=== PATIENT | male | born 1970 | race Caucasian/White ===

== ENCOUNTER 2020-05-11 16:44 | Outpatient (REF) | payer OTHER, SELFPAY | END 2020-05-11 16:45 | disposition home or self-care (01) | LOC: HO.LAB 16:44 | PROVIDERS: Visit Provider Nurse Practitioner Family | DX: N39.0 Urinary tract infection, site not specified (principal); R31.9 Hematuria, unspecified | CPT/HCPCS: 87086; 87088; 87186 ==

== ENCOUNTER 2020-05-24 10:50 | Day surgery (SDC) | payer OTHER, SELFPAY ==
[2020-05-18 12:22] VITALS: BMI 27.8
--- NOTE | 2020-05-23 09:39 | P.CONAN_ITS ---
Documented by User: Ania Zurita 05/23/20 09:40 HPI - Anesthesia Eval Consult details Narrative: 49yo M for Colonoscopy [facility] Past Medical History Medical History Elevated cholesterol Heartburn symptom Sleep apnea Urinary tract infection Surgical History Surgical History No history of previous surgery Social History Social History Smoking Status: Never smoker Use of substances other than those prescribed or required for medical reasons: No Advance Directives Information Provided: No Recently lost weight without trying: No Meds Allergies Allergy/AdvReac Type Severity Reaction Status Date / Time No Known Allergies Allergy Verified 05/18/20 11:09 [No Known Allergies*] Home Medications Medication Instructions Recorded Confirmed Type cephalexin 1 cap PO BID 05/18/20 05/18/20 History Exam Exam Date and Time: May 23, [id number] Height,Weight and Vital Signs: Height 5 ft 8 in Weight 83.007 kg Assessment and Plan Assessment Anesthesia Assessment: Chart Reviewed Documented by User: Maeve Lopez 05/24/20 11:03 [facility] Past Medical History Medical History Elevated cholesterol Heartburn symptom Sleep apnea Urinary tract infection Surgical History Surgical History No history of previous surgery Social History Social History Smoking Status: Never smoker Use of substances other than those prescribed or required for medical reasons: No Advance Directives Information Provided: No Recently lost weight without trying: No Meds Allergies Allergy/AdvReac Type Severity Reaction Status Date / Time No Known Allergies Allergy Verified 05/18/20 11:09 [No Known Allergies*] Home Medications Medication Instructions Recorded Confirmed Type cephalexin 1 cap PO BID 05/18/20 05/18/20 History Exam Airway Mallampati Class: II TM Dist: >3cm Neck ROM: Full Heart: RRR Lungs: CTA BL Assessment and Plan Assessment Anesthesia Assessment: Anesthesia Plan Discussed and Chart Reviewed Final Anesthetic Review NPO: Yes ASA Class: II Final Preanesthetic Review: Meds/Allgs Chart Reviewed and Consent Obtained/Reviewed Patient Risk: Intermediate Procedure Risk: Intermediate Anesthetic Plan Anesthetic Plan: MAC: Disposition: Standard PACU
[2020-05-24 11:03] VITALS: BP 138/88; PULSE 109; RESP 16; TEMP 36.6; O2SAT 96
[2020-05-24] MEDS: Lactated Ringers 1,000 ML 100 ML IVCONT (11:07)
--- NOTE | 2020-05-24 11:08 | MHC.SHP ---
Pre-Procedural Eval Section B Chief Complaint: SCREENING Details of Present Illness: Colon cancer screening Relevant Family History (Specify if Yes): No Relevant Social History: None Present Medications: None Medical History: Significant History (JOSE E---does not use CPAP--Does not get Flu shot) History of Previous Operations: No relevant previous surgery Allergies: Allergies Allergy/AdvReac Type Severity Reaction Status Date / Time No Known Allergies Allergy Verified 05/18/20 11:09 [No Known Allergies*] Review of Systems Sugical H&P ROS: Negative: Constitution, Cardiovascular and Respiratory Exam Surgical H&P Exam: Normal: HEENT, Normal: Heart, Normal: Lungs and Normal: Extremities and Significant Findings: Abdomen (central obesity) Plan Diagnosis/Plan: Unchanged Patient has been examined and remains a candidate for the planned procedure--Yes
--- NOTE | 2020-05-24 11:55 | PM.PROC ---
Brief Operative Note Date of procedure: 05/24/20 Pre-op diagnosis: Colon cancer screening # 1 Post-op diagnosis: other (Colon polyp) Procedure: Colonoscopy with excisional polypectomy x1--cold bx forceps Anesthesia: MAC (Magda Orozco CRNA) Surgeon: Coco Ch Estimated blood loss (mL): 5 Pathology: other (Descending colon just below splenic flexure.) Condition: stable Disposition: PACU
[2020-05-24 11:56] VITALS: BP 102/64; PULSE 88; RESP 12; TEMP 36.6; O2SAT 96
[2020-05-24 12:11] VITALS: BP 104/67; PULSE 77; RESP 16; O2SAT 97
[2020-05-24 12:26] VITALS: BP 114/73; RESP 16; O2SAT 100
--- NOTE | 2020-05-24 12:53 | OP_ITS ---
SURGEON: Coco Ch MD PREOPERATIVE DIAGNOSIS: Colon cancer screening. Dr. Webb's patient, ate supper with chicken, mashed potatoes, gravy etc (Part of his clear liquid diet.). POSTOPERATIVE DIAGNOSIS: Colonic polyp. PROCEDURE PERFORMED: Colonoscopy with excisional polypectomy x1 using cold biopsy forceps. ESTIMATED BLOOD LOSS: Less than 10 mL. COMPLICATIONS: No complications. ANESTHESIA: Monitored. ANESTHESIOLOGIST: Magda Orozco CRNA. ASSISTANTS: No assistant golf professional. SPECIMENS: Specimen removed; descending colon polyp. FORM TAMPER OPERATOR: Dr. Ch. CONDITION: Postprocedure, stable. FINDINGS: Digital rectal exam, prostate was normal. Sphincter tone was adequate. Video colonoscope was introduced without difficulty. There was a residual slightly oily food that was opaque throughout the colon. This required some flushing and suctioning. More than 500 mL of sterile water was used. The scope was advanced into the cecum. Appendiceal orifice was seen. Ileocecal valve was well seen. On withdrawing the scope, good rotational views. There was a polyp identified just below the splenic flexure at the start of the descending colon. This was removed excisionally with cold biopsy forceps. Slow rotational views. Again, requiring some significant flushing and suctioning to adequately visualize the rectosigmoid region. Air insufflation was utilized in this region. Anorectal verge was clear. PLAN: Depending on the histology of the polyp, I would recommend repeat colon cancer screening in 5 years due to not following appropriate prep to make sure that no areas were overlooked. GRAFT OR IMPLANTS: No grafts or implants. Coco Ch MD MEN/MODL / [id number] [facility]ENTER[facility]el[facility]
--- NOTE | 2020-05-24 12:59 | PC.NURSE ---
1238 AWAKE BUT MOVING SLOW GERONIMO PO REQ TO USE BR MONITORS DCD IVF DC'D TOTAL IN IS 900 ML LR. STEADY W ASST TO BR STS MOVED SOME AIR AND SMALL BM RET TO PACU 12 IV DCD TIP INTACT PRESSURE AND DRESSING TO SITE. DRESSED SELF CALL [facility] IN REACH PLAN TO AMB TO DISCHARGE AREA.
== END 2020-05-24 13:14 | disposition home or self-care (01) ==
PROVIDERS: PCP Internal Medicine; Visit Provider Internal Medicine Gastroenterology
PROC: 0DJD8ZZ Inspection of Lower Intestinal Tract, Via Natural or Artificial Opening Endoscopic (ICD-10-PCS; CPT 45378; principal; 2020-05-24 13:30)
DX: Z12.11 Encounter for screening for malignant neoplasm of colon (principal); K63.5 Polyp of colon; G47.33 Obstructive sleep apnea (adult) (pediatric); E78.00 Pure hypercholesterolemia, unspecified; Z79.899 Other long term (current) drug therapy
CPT/HCPCS: 45380; 88305

== ENCOUNTER → 2020-06-14 08:45 | Outpatient (BNVA) | payer OTHER, SELFPAY | PROVIDERS: PCP Internal Medicine; Visit Provider Physician Assistant | DX: Z76.89 Persons encountering health services in other specified circumstances (principal) ==

== ENCOUNTER 2020-10-07 07:59 | Outpatient (REF) | payer OTHER, SELFPAY ==
[2020-10-07 08:27] LABS: MANUAL DIFF FLAG NO
[2020-10-07 08:32] LABS: White Blood Count 7.3 X10*3/uL (4.8-10.8)
[2020-10-07 08:33] LABS: Basophils Percent Auto 0.3 % (0-2); Eosinophils Absolute Auto 0.1 X10*3/uL (0.0-0.4); Eosinophils Percent Auto 0.8 % (0-4); Hematocrit 48.4 % (42-52); Hemoglobin 16.5 g/dl (14.0-18.0); Imm Gran Abs Auto 0.01 X10*3/uL (0.00-0.03); Imm Gran Pct Auto 0.1 % (0.0-0.4); Lymphocytes Absolute Auto 2.7 X10*3/uL (1.2-4.9); Lymphocytes Percent Auto 37.2 % (20-40); Mean Corpuscular HGB Conc 34.1 g/dl (31.0-36.0); Mean Corpuscular Hemoglobin 27.9 pg (27.0-33.0); Mean Corpuscular Volume 81.8 fL (80-98); Mean Platelet Volume 10.4 fL (9.4-12.4); Monocytes Absolute Auto 0.4 X10*3/uL (0.1-1.2); Monocytes Percent Auto 5.1 % (2-11); Neutrophils Absolute Auto 4.1 X10*3/uL (2.0-8.3); Neutrophils Percent Auto 56.5 % (45-73); Platelet Count 294 X10*3/uL (160-400); Red Blood Count 5.92 X10*6/uL (4.60-5.80); Red Cell Distribution Width 12.1 % (11.0-16.0)
[2020-10-07 09:02] LABS: Alanine Aminotransferase 47 U/L (0-40); Albumin Level 4.2 g/dL (3.5-5.0); Alkaline Phosphatase 132 U/L (39-117); Anion Gap 14 (12-20); Aspartate Amino Transferase 24 U/L (5-37); Bilirubin Total 1.2 mg/dL (0.0-1.0); Blood Urea Nitrogen 12 mg/dL (9-16); Calcium 9.2 mg/dL (8.4-10.2); Carbon Dioxide 26 mmol/L (22-29); Chloride 102 mmol/L (96-108); Cholesterol 195 mg/dL; Estimated Glomerular Filt Rate > 60; Glucose Fasting 291 mg/dL (60-99); HDL Cholesterol 43 mg/dL; LDL Cholesterol Calculated 126 mg/dl; Potassium 4.2 mmol/L (3.3-5.1); Sodium 138 mmol/L (135-145); Total Protein 7.8 g/dL (6.5-8.0); Triglycerides 130 mg/dL
[2020-10-07 09:16] LABS: SARS COV2 IgG Negative (Negative)
[2020-10-07 09:24] LABS: PSA,Total (Free>4and<10) 1.58 ng/mL (0.00-4.00)
[2020-10-11 14:01] LABS: Vitamin D 25-OH, D2 <4 ng/mL; Vitamin D 25-OH, D3 20 ng/mL; Vitamin D 25-OH, Total 20 ng/mL (30-100)
== END 2020-10-07 08:00 | disposition home or self-care (01) ==
LOC: HO.LAB 07:59
PROVIDERS: PCP Internal Medicine; Visit Provider Internal Medicine
DX: D64.9 Anemia, unspecified (principal); R63.4 Abnormal weight loss; E78.5 Hyperlipidemia, unspecified; Z12.5 Encounter for screening for malignant neoplasm of prostate; Z01.84 Encounter for antibody response examination; E55.9 Vitamin D deficiency, unspecified
CPT/HCPCS: 36415; 80053; 80061; 82306; 84153; 85025; 86769

== ENCOUNTER 2020-12-08 09:02 | Outpatient (REF) | payer OTHER, SELFPAY ==
[2020-12-08 10:51] LABS: MANUAL DIFF FLAG NO
[2020-12-08 10:58] LABS: Basophils Percent Auto 0.1 % (0-2); Eosinophils Absolute Auto 0.1 X10*3/uL (0.0-0.4); Eosinophils Percent Auto 0.6 % (0-4); Hematocrit 47.4 % (42-52); Hemoglobin 15.6 g/dl (14.0-18.0); Imm Gran Abs Auto 0.03 X10*3/uL (0.00-0.03); Imm Gran Pct Auto 0.3 % (0.0-0.4); Lymphocytes Absolute Auto 1.9 X10*3/uL (1.2-4.9); Lymphocytes Percent Auto 21.6 % (20-40); Mean Corpuscular HGB Conc 32.9 g/dl (31.0-36.0); Mean Corpuscular Hemoglobin 27.7 pg (27.0-33.0); Mean Corpuscular Volume 84.2 fL (80-98); Mean Platelet Volume 9.5 fL (9.4-12.4); Monocytes Absolute Auto 0.6 X10*3/uL (0.1-1.2); Monocytes Percent Auto 6.6 % (2-11); Neutrophils Absolute Auto 6.4 X10*3/uL (2.0-8.3); Neutrophils Percent Auto 70.8 % (45-73); Platelet Count 296 X10*3/uL (160-400); Red Blood Count 5.63 X10*6/uL (4.60-5.80); Red Cell Distribution Width 12.9 % (11.0-16.0)
[2020-12-08 11:16] LABS: Alanine Aminotransferase 51 U/L (0-40); Albumin Level 4.3 g/dL (3.5-5.0); Alkaline Phosphatase 95 U/L (39-117); Anion Gap 12 (12-20); Aspartate Amino Transferase 25 U/L (5-37); Bilirubin Total 1.2 mg/dL (0.0-1.0); Blood Urea Nitrogen 9 mg/dL (9-16); Calcium 9.3 mg/dL (8.4-10.2); Carbon Dioxide 29 mmol/L (22-29); Chloride 102 mmol/L (96-108); Cholesterol 106 mg/dL; Estimated Glomerular Filt Rate > 60; Glucose Fasting 124 mg/dL (60-99); HDL Cholesterol 30 mg/dL; LDL Cholesterol Calculated 61 mg/dl; Potassium 4.2 mmol/L (3.3-5.1); Sodium 139 mmol/L (135-145); Total Protein 7.5 g/dL (6.5-8.0); Triglycerides 77 mg/dL
[2020-12-08 11:39] LABS: Thyroid Stimulating Hormone 0.33 uIU/mL (0.32-4.0)
[2020-12-08 12:19] LABS: Creatinine Urine 37.92 mg/dL; Microalbumin Urine < 5.0 mg/L
== END 2020-12-08 09:03 | disposition home or self-care (01) ==
LOC: HO.LAB 09:02
PROVIDERS: PCP Internal Medicine; Visit Provider Nurse Practitioner Gerontology
DX: E11.65 Type 2 diabetes mellitus with hyperglycemia (principal); E78.5 Hyperlipidemia, unspecified; D64.9 Anemia, unspecified; R63.4 Abnormal weight loss
CPT/HCPCS: 36415; 80053; 80061; 82043; 82947; 84443; 85025

== ENCOUNTER → 2021-01-11 10:42 | Outpatient (BNVA) | payer OTHER, SELFPAY | PROVIDERS: PCP Internal Medicine; Visit Provider Dietitian, Registered | DX: E11.65 Type 2 diabetes mellitus with hyperglycemia (principal) | CPT/HCPCS: 97802 ==

== ENCOUNTER → 2021-01-19 07:25 | Outpatient (BNVA) | payer OTHER, SELFPAY | PROVIDERS: PCP Internal Medicine; Visit Provider Nurse Practitioner Gerontology | DX: E11.65 Type 2 diabetes mellitus with hyperglycemia (principal); E78.5 Hyperlipidemia, unspecified | CPT/HCPCS: 82947 ==

== ENCOUNTER 2021-03-16 16:56 | Outpatient (REF) | payer OTHER, SELFPAY | END 2021-03-16 16:57 | disposition home or self-care (01) | LOC: HO.LNP 16:56 | PROVIDERS: Visit Provider Hospitalist | DX: Z20.822 Contact with and (suspected) exposure to COVID-19 (principal); B34.9 Viral infection, unspecified | CPT/HCPCS: U0003; U0005 ==

== ENCOUNTER → 2021-04-10 09:17 | Outpatient (BNVA) | payer OTHER, SELFPAY | PROVIDERS: PCP Internal Medicine; Visit Provider Dietitian, Registered | DX: E11.65 Type 2 diabetes mellitus with hyperglycemia (principal) | CPT/HCPCS: 97803 ==

== ENCOUNTER → 2021-05-05 12:41 | Outpatient (BNVA) | payer OTHER, SELFPAY | PROVIDERS: PCP Internal Medicine; Visit Provider Nurse Practitioner Gerontology | DX: E11.65 Type 2 diabetes mellitus with hyperglycemia (principal); E66.3 Overweight; E78.5 Hyperlipidemia, unspecified; E78.00 Pure hypercholesterolemia, unspecified; Z68.25 Body mass index [BMI] 25.0-25.9, adult; Z79.84 Long term (current) use of oral hypoglycemic drugs | CPT/HCPCS: 82947; 83036 ==

== ENCOUNTER → 2021-07-17 09:02 | Outpatient (BNVA) | payer OTHER, SELFPAY | PROVIDERS: PCP Internal Medicine; Visit Provider Dietitian, Registered | DX: E11.65 Type 2 diabetes mellitus with hyperglycemia (principal) | CPT/HCPCS: 97803 ==

== ENCOUNTER → 2022-01-16 09:03 | Outpatient (BNVA) | payer OTHER, SELFPAY | PROVIDERS: PCP Internal Medicine; Visit Provider Dietitian, Registered | DX: E11.65 Type 2 diabetes mellitus with hyperglycemia (principal) | CPT/HCPCS: 97803 ==

== ENCOUNTER 2023-04-29 17:14 | Outpatient (AMB) | payer OTHER, SELFPAY ==
[2023-04-29 17:20] VITALS: BP 112/70; PULSE 73; O2SAT 99; BMI 22.0
--- NOTE | 2023-04-29 17:20 | MHC.PC.OV ---
Vital Signs 04/29/23 17:20 Height 5 ft 8 in Weight 145 lb BMI 22.0 BP 112/70 Blood Pressure Location Lt brachial Position Sitting Pulse 73 Pulse Source Pulse Oximeter Pulse Oximetry (%) 99 Oxygen Delivery Method Room Air Intake Visit Reasons: PHYSICAL Intake Note: Patient here for a physical exam Cable Tender Required: No Accompanied by: Self / Same As Patient Allergies No Known Allergies [No Known Allergies*] Allergy (Verified 04/29/23 17:25) Medication List - Last Reconciled 04/29/23 by Terri Pastor MD blood sugar diagnostic (FreeStyle Lite Strips) Use 1 test strip twice a day blood-glucose meter (FreeStyle Lite Meter kit) 1 ea miscellaneous .once a day 30 days cholecalciferol (vitamin D3) 50 mcg PO DAILY 90 days lancets (FreeStyle Lancets) Use 1 lancet twice a day Tobacco use date assessed: 09/10/22 Dental Screening Dental Screen Date: 04/29/23 Did you have a dental visit in the last 12 months?: Yes Did you have a dental problem in the last 6 months where you did not have access to dental care?: No Was dental information given to patient?: Patient has dentist HPI HPI Comments History of Present Illness Details This is a 52-year-old male with diabetes mellitus type 2 that comes for his physical exam. He stopped taking his metformin for few months because he was doing home remedies which did not work. He does not even take his blood glucose at home because the machine always says high. A1c not on goal and I restart him on metformin immediately. Diabetic eye exam was over a year ago. Colonoscopy was done 2019. [facility] Medical History Hypovitaminosis D Overweight DM2 (diabetes mellitus, type 2) Diabetes mellitus Dyslipidemia Weight loss Heartburn symptom Urinary tract infection Sleep apnea Elevated cholesterol Surgical History Hx of colonoscopy Family History Father Diabetes mellitus Mother Diabetes mellitus Social History Household Members: Spouse and Children Housing: Apartment Alcohol intake: former Patient Tobacco Use Status: Never used Tobacco e-Cigarette/Vaping Use: Never Used Second Hand Smoke Exposure: No service: No Current occupational status: employed Current occupational exposures/hazards: No Cognitive needs: No Hearing needs: No Vision needs: Yes Questionnaire Thrive Questionnaire Date Thrive assessed: 09/10/22 BETHANY-7 AMB Questionnaire BETHANY-7 Date BETHANY - 7 assessed: 09/10/22 Source: Developed by Drs. Himanshu Castellano, Talia Alexis, Jorge Noel and colleagues, with an educational bj from [employer]. Review of Systems Const All systems reviewed & are unremarkable except as noted in HPI and below Eyes Reports no additional complaints, Denies change in vision and Denies other visual disturbances Card Denies chest pain at rest, Denies chest pain with activity, Denies edema, Denies irregular heart rhythm, Denies claudication, Denies dyspnea, Denies dyspnea on exertion, Denies orthopnea, Denies paroxysmal nocturnal dyspnea and Denies slow heart rate Resp Denies cough, Denies dyspnea and Denies dyspnea on exertion GI Denies abdominal pain, Denies change in bowel habits, Denies excessive flatus, Denies nausea and Denies vomiting Denies urinary hesitancy, Denies urinary incontinence and Denies urinary urgency Musc Denies abnormal gait, Denies atrophy, Denies deformity and Denies limited range of motion Skin/Breast Denies bleeding lesions, Denies changing lesions and Denies rash Neuro Denies abnormal gait and Denies lack of coordination Physical exam (Primary Care) Vital Signs: Last Vital Signs Pulse 73 04/29/23 17:20 BP 112/70 04/29/23 17:20 Pulse Ox 99 04/29/23 17:20 Oxygen Delivery Method Room Air 04/29/23 17:20 BMI result Body Mass Index 22.0 Tobacco/Smoking Status: Tobacco use Status Tobacco use date assessed 09/10/22 04/29/23 17:24 Patient Tobacco Use Status Never used Tobacco 04/29/23 17:24 Tobacco use type 01/04/21 17:37 e-Cigarette/Vaping Use Never Used 04/29/23 17:24 Thrive Assessment: Date of Thrive Assessment Date Thrive assessed 09/10/22 04/29/23 17:24 Const Orientation/consciousness: patient oriented x3 HENMT Head: Yes normal to inspection, Yes normocephalic and Yes atraumatic Ears: external ears normal Eyes General: appearance normal, both eyes and all related structures Eyelids: Yes eyelids normal Conjunctivae: conjunctivae normal Neck Neck: Yes normal visual inspection and Yes supple Resp Effort & Inspection: normal respiratory effort Auscultation: clear to auscultation bilaterally Cardio Jugular venous distension: no JVD Rate: regular rate Rhythm: regular rhythm Heart sounds: S1 normal heart sound present and S2 normal heart sound present GI Inspection: Yes normal to inspection Palpation (GI): Soft to palpation and nontender Auscultation: normal bowel sounds Skin General skin exam: no rashes or lesions noted Neuro General: patient oriented x3 and no focal motor deficits Extrem General: Yes full ROM Psych Appearance: grossly normal Office Procedures Flu Questionnaire Does the patient have a severe egg allergy?: No Results AMB Hemoglobin A1c AMB Hemoglobin A1c 11.6 % Last Edit by DOMINGUEZ Laird on 04/29/23 17:26 Immunizations flu vacc [id number] 6mos up(PF) 60 mcg(15 mcgx4)/0.5 mL IM syringe Performing Provider: Terri Pastor MD [facility] Documented (not given) by: DOMINGUEZ Laird on 04/29/23 17:24 Reason Not Given: Patient Refused Results Reviewed Results Reviewed: Laboratory Last Values Hgb A1c (Clinic) 11.6 % (4.0-6.0) H 04/29/23 17:25 Assessment and Plan Assessment & Plan (1) Physical exam: Code(s): Z00.00 - Encounter for general adult medical examination without abnormal findings Plan: Repeat in a year. (2) Diabetes mellitus: Code(s): E11.9 - Type 2 diabetes mellitus without complications Plan: Restart metformin. A1c goal is equal or less than 7%. Orders: Orders Influenza [id number] Immunization 04/29/23 Z23 - Encounter for immunization Vitamin D 25-OH Total 04/29/23 E55.9 - Vitamin D deficiency, unspecified Lipid Panel 04/29/23 E78.5 - Hyperlipidemia, unspecified Microalbumin, Random (w Creat) 04/29/23 E11.9 - Type 2 diabetes mellitus without complications AMB Hemoglobin A1c 04/29/23 E11.9 - Type 2 diabetes mellitus without complications Comprehensive [place]. Panel Fast 04/29/23 Z00.00 - Encounter for general adult medical examination without abnormal findings Referrals Ophthalmology Referral E11.9 - Type 2 diabetes mellitus without complications Medications: New metformin 500 mg PO BID 180 tabs 1RF 90 days E11.9 - Type 2 diabetes mellitus without complications Refilled cholecalciferol (vitamin D3) 50 mcg PO DAILY 90 caps 1RF 90 days E11.9 - Type 2 diabetes mellitus without complications Coding Level of Care Code Est Pt Prev Care 40-64y(84346) Diagnoses Physical exam Z00.00 Diabetes mellitus E11.9 Time Spent (min) 32
== END 2023-04-29 17:36 | disposition home or self-care (01) ==
LOC: HO.HMGH 17:14
PROVIDERS: PCP Internal Medicine; Visit Provider Internal Medicine
DX: E11.9 Type 2 diabetes mellitus without complications (principal)
CPT/HCPCS: 83036; 99396

== ENCOUNTER 2023-09-12 16:43 | Outpatient (AMB) | payer OTHER, SELFPAY ==
[2023-09-12 16:55] VITALS: BP 110/78; BMI 22.0
--- NOTE | 2023-09-12 16:55 | MHC.PC.OV ---
Vital Signs 09/12/23 16:55 Height 5 ft 8 in Weight 145 lb BMI 22.0 BP 110/78 Blood Pressure Location Lt brachial Position Sitting Intake Visit Reasons: dm Intake Note: Patient here for a follow up DM Package Pick Up Required: No Accompanied by: Self / Same As Patient Allergies metformin Adverse Reaction (Intermediate, Verified 09/12/23 17:23) Diarrhea Medication List - Last Reconciled 09/12/23 by Terri Pastor MD blood sugar diagnostic (FreeStyle Lite Strips) Use 1 test strip twice a day blood-glucose meter (FreeStyle Lite Meter kit) 1 ea miscellaneous .once a day 30 days cholecalciferol (vitamin D3) 50 mcg PO DAILY 90 days lancets (FreeStyle Lancets) Use 1 lancet twice a day Tobacco use date assessed: 09/12/23 Dental Screening Dental Screen Date: 09/12/23 Did you have a dental visit in the last 12 months?: No Did you have a dental problem in the last 6 months where you did not have access to dental care?: No Was dental information given to patient?: Patient has dentist HPI HPI Comments History of Present Illness Details This is a 52-year-old male with diabetes mellitus type 2 and low vitamin-D that comes today for follow-up on his conditions. A1c very elevated and he admits that he stop taking metformin few months ago because it was causing abdominal discomfort and diarrhea. He does not seem concerned about his diabetes despite being aware that he can cause microvascular and macrovascular complications causing blindness, gangrene, renal failure and even . Labs were not done and I reordered them. On vitamin-D supplements for his low vitamin-D. [facility] Medical History (Updated 09/12/23 @ 17:25 by Terri Pastor MD) Hypovitaminosis D Overweight DM2 (diabetes mellitus, type 2) Diabetes mellitus Dyslipidemia Weight loss Heartburn symptom Urinary tract infection Sleep apnea Elevated cholesterol Surgical History Hx of colonoscopy Family History Father Diabetes mellitus Mother Diabetes mellitus Social History Household Members: Spouse and Children Housing: Apartment Alcohol intake: former Patient Tobacco Use Status: Never used Tobacco e-Cigarette/Vaping Use: Never Used Second Hand Smoke Exposure: No service: No Current occupational status: employed Current occupational exposures/hazards: No Cognitive needs: No Hearing needs: No Vision needs: Yes Questionnaire PHQ-9 Over the last 2 weeks, how often have you been bothered by any of the following problems? 1. Little interest or pleasure in doing things: not at all 2. Feeling down, depressed, or hopeless: several days 3. Trouble falling or staying asleep, or sleeping too much: not at all 4. Feeling tired or having little energy: not at all 5. Poor appetite or overeating: not at all 6. Feeling bad about yourself - or that you are a failure or have let yourself or your family down: not at all 7. Trouble concentrating on things, such as reading the newspaper or watching television: not at all 8. Moving or speaking so slowly that other people could have noticed. Or the opposite - being so fidgety or restless that you have been moving around a lot more than usual: not at all 9. Thoughts that you would be better off or of hurting yourself in some way: not at all Total score: 1 Depression Screening Interpretation: Negative Depression Screening Done: Yes 71212 - PHQ-9 Billing: Yes Source: Developed by Drs. Himanshu Castellano, Talia Alexis, Jorge Noel and colleagues, with an educational bj from [employer]. Thrive Questionnaire Date Thrive assessed: 09/12/23 I am a: Patient What is your living situation today?: I have a steady place to live Within the past 12 months, did the food you bought not last and you didn't have the money to get more?: Never true Within the past 12 months, did you worry whether your food would run out before you got money to buy more?: Never true Do you have trouble paying for medicines?: No Do you have trouble getting transportation to medical appointments?: No Do you have trouble paying your heating and electricity bill?: No Do you have trouble taking care of your child, family member or friend?: No Do you have trouble with day-to-day activities such as bathing, preparing meals, shopping, managing finances, etc.?: No Are you currently unemployed and looking for a job?: No Are you interested in more education?: No Please select the resources that you would like help with: None Currently or been in a relationship where the following occur: no concerns reported THRIVE Score: 0 AUDIT C Alcohol Use Questionnaire (AUDIT-C) 1. How often do you have a drink containing alcohol?: Never Total Score: 0 Score Reviewed/Action Taken: No BETHANY-7 AMB Questionnaire BETHANY-7 Date BETHANY - 7 assessed: 09/12/23 Feeling nervous, anxious, or on edge: 1 = Several days Not being able to stop or control worryin = Not at all Worrying too much about different things: 0 = Not at all Trouble relaxin = Not at all Being so restless that it is hard to sit still: 0 = Not at all Becoming easily annoyed or irritable: 1 = Several days Feeling afraid as if something awful might happen: 1 = Several days Total BETHANY-7 score (0-4 normal; 5-9 mild; 10-14 moderate; 15-21 severe): 3 Source: Developed by Drs. Himanshu Castellano, Talia Alexis, Jorge Noel and colleagues, with an educational bj from [employer]. BETHANY-7 Assessment Billing BETHANY-7 Assessment Tool: BETHANY-7 Assessment [id number] Review of Systems Const All systems reviewed & are unremarkable except as noted in HPI and below Eyes Reports no additional complaints, Denies change in vision and Denies other visual disturbances Card Denies chest pain at rest, Denies chest pain with activity, Denies edema, Denies irregular heart rhythm, Denies claudication, Denies dyspnea, Denies dyspnea on exertion, Denies orthopnea, Denies paroxysmal nocturnal dyspnea and Denies slow heart rate Resp Denies cough, Denies dyspnea and Denies dyspnea on exertion GI Denies abdominal pain, Denies change in bowel habits, Denies excessive flatus, Denies nausea and Denies vomiting Denies urinary hesitancy, Denies urinary incontinence and Denies urinary urgency Musc Denies atrophy, Denies deformity and Denies limited range of motion Neuro Denies confusion Psych Denies confusion Physical exam (Primary Care) Vital Signs: Last Vital Signs BP 110/78 09/12/23 16:55 BMI result Body Mass Index 22.0 Tobacco/Smoking Status: Tobacco use Status Tobacco use date assessed 09/12/23 09/12/23 17:01 Patient Tobacco Use Status Never used Tobacco 09/12/23 17:01 Tobacco use type 01/04/21 17:37 e-Cigarette/Vaping Use Never Used 09/12/23 17:01 PHQ-9: PHQ-9 Score PHQ-9: Total score 1 09/12/23 17:26 Depression Screening Interpretation: Negative Thrive Assessment: Date of Thrive Assessment Date Thrive assessed 09/12/23 09/12/23 17:04 Currently or been in a relationship where the following occur: no concerns reported Const General: No confusion Orientation/consciousness: patient oriented x3 and No confusion Eyes General: appearance normal, both eyes and all related structures Eyelids: Yes eyelids normal Conjunctivae: conjunctivae normal Neck Neck: Yes normal visual inspection and Yes supple Resp Effort & Inspection: normal respiratory effort Auscultation: clear to auscultation bilaterally Cardio Jugular venous distension: no JVD Rate: regular rate Rhythm: regular rhythm Heart sounds: S1 normal heart sound present and S2 normal heart sound present Neuro General: patient oriented x3 and No confusion Extrem General: Yes full ROM Psych Appearance: grossly normal Results AMB Hemoglobin A1c AMB Hemoglobin A1c 14.0 % Last Edit by DOMINGUEZ Laird on 09/12/23 17:05 Results Reviewed Results Reviewed: Laboratory Last Values Hgb A1c (Clinic) 14.0 % (4.0-6.0) H 09/12/23 16:54 Assessment and Plan Assessment & Plan (1) DM2 (diabetes mellitus, type 2): Code(s): E11.9 - Type 2 diabetes mellitus without complications Qualifiers: Diabetes mellitus technician terminal and repeater insulin use: without technician terminal and repeater use Diabetes mellitus complication status: without complication Qualified Code(s): E11.9 - Type 2 diabetes mellitus without complications Plan: Start Actos. A1c goal is equal or less than 7%. Patient declines insulin or any type of injection. (2) Hypovitaminosis D: Code(s): E55.9 - Vitamin D deficiency, unspecified Plan: Continue vitamin-D supplements. Orders: Orders AMB Hemoglobin A1c 09/12/23 E11.9 - Type 2 diabetes mellitus without complications Lipid Panel 09/12/23 E78.5 - Hyperlipidemia, unspecified Microalbumin, Random (w Creat) 09/12/23 E11.9 - Type 2 diabetes mellitus without complications Comprehensive [place]. Panel Fast 09/12/23 E11.9 - Type 2 diabetes mellitus without complications PSA,Total (Free>4and<10) 09/12/23 Z12.5 - Encounter for screening for malignant neoplasm of prostate Vitamin D 25-OH Total 09/12/23 E55.9 - Vitamin D deficiency, unspecified ECG 12 lead EKG 09/12/23 R07.9 - Chest pain, unspecified Medications: New pioglitazone 15 mg PO DAILY 90 days 90 tabs 1RF E11.9 - Type 2 diabetes mellitus without complications Coding Level of Care Code Est Pt Level 3 (84609) Diagnoses Type 2 diabetes mellitus without complication, without long-term current use of insulin E11.9 Diabetes mellitus technician terminal and repeater insulin use: without technician terminal and repeater use Diabetes mellitus complication status: without complication Hypovitaminosis D E55.9 Additional Codes BETHANY-7 Assessment Billing - BETHANY-7 Assessment Tool: BETHANY-7 Assessment [id number] ([id number]) Time Spent (min) 19
== END 2023-09-12 17:27 | disposition home or self-care (01) ==
LOC: HO.HMGH 16:43
PROVIDERS: PCP Internal Medicine; Visit Provider Internal Medicine
DX: E11.9 Type 2 diabetes mellitus without complications (principal)
CPT/HCPCS: 83036; 99213

== ENCOUNTER 2023-12-28 08:27 | Outpatient (REF) | payer OTHER, SELFPAY ==
[2023-12-28 09:40] LABS: Creatinine Urine 68.96 mg/dL; Microalbum/Creatinine Ratio Ur 20.3 ug/mg cr (<30)
[2023-12-28 09:45] LABS: Alanine Aminotransferase 31 U/L (0-40); Albumin Level 4.6 g/dL (3.5-5.0); Alkaline Phosphatase 141 U/L (39-117); Anion Gap 13 (12-20); Aspartate Amino Transferase 20 U/L (5-37); Bilirubin Total 0.9 mg/dL (0.0-1.0); Blood Urea Nitrogen 14 mg/dL (9-16); Carbon Dioxide 29 mmol/L (22-29); Chloride 101 mmol/L (96-108); Cholesterol 207 mg/dL (<200); Estimated Glomerular Filt Rate > 60; Glucose Fasting 302 mg/dL (60-99); HDL Cholesterol 48 mg/dL (>40); LDL Cholesterol Calculated 133 mg/dL (<100); Potassium 4.3 mmol/L (3.3-5.1); Sodium 139 mmol/L (135-145); Total Protein 8.4 g/dL (6.5-8.0); Triglycerides 131 mg/dL (<150)
[2023-12-28 10:00] LABS: Vitamin D 25-OH Total 32.2 ng/mL (>30)
[2023-12-28 10:01] LABS: PSA,Total (Free>4and<10) 1.62 ng/mL (0.00-4.00)
== END 2023-12-28 08:28 | disposition home or self-care (01) ==
LOC: HO.LAB 08:27
PROVIDERS: PCP Internal Medicine; Visit Provider Internal Medicine
DX: Z00.00 Encounter for general adult medical examination without abnormal findings (principal); Z12.5 Encounter for screening for malignant neoplasm of prostate; E55.9 Vitamin D deficiency, unspecified; E78.5 Hyperlipidemia, unspecified; E11.9 Type 2 diabetes mellitus without complications
CPT/HCPCS: 36415; 80053; 80061; 82043; 82306; 82570; 84153

== ENCOUNTER 2023-12-31 17:04 | Outpatient (AMB) | payer OTHER, SELFPAY ==
[2023-12-31 17:05] VITALS: BP 110/72; BMI 22.2
--- NOTE | 2023-12-31 17:05 | A.OFFPC_ITS ---
Vital Signs 12/31/23 17:05 Height 5 ft 8 in Weight 146 lb BMI 22.2 BP 110/72 Blood Pressure Location Lt brachial Position Sitting Intake Visit Reasons: 4 month f/u Intake Note: Patient here for a 4 month follow up, c/o shoulder pain/ back of head/neck pain Phytopathology Teacher Required: No Accompanied by: Self / Same As Patient Allergies metformin Adverse Reaction (Intermediate, Verified 12/31/23 17:24) Diarrhea Medication List - Last Reconciled 12/31/23 by Terri Pastor MD blood sugar diagnostic (FreeStyle Lite Strips) Use 1 test strip twice a day blood-glucose meter (FreeStyle Lite Meter kit) 1 ea miscellaneous .once a day 30 days cholecalciferol (vitamin D3) 50 mcg PO DAILY 90 days lancets (FreeStyle Lancets) Use 1 lancet twice a day pioglitazone 15 mg PO DAILY 90 days Tobacco use date assessed: 09/12/23 Dental Screening Dental Screen Date: 09/12/23 Did you have a dental visit in the last 12 months?: No Did you have a dental problem in the last 6 months where you did not have access to dental care?: No Was dental information given to patient?: Patient has dentist HPI HPI Comments History of Present Illness Details This is a 53-year-old male with diabetes mellitus type 2 on hyperlipidemia that comes today for follow-up on his conditions. A1c is elevated because he has not compliant with his medication. He declines insulin or any other needle. LDL not on goal and I will add statins. He has polyuria and polydipsia as well as unintentional weight loss. Had diabetic eye exam less than 6 months ago but can not tell me the results. No chest pain or shortness of breath. Complains of neck pain secondary to muscle spasm. [facility] Medical History (Updated 12/31/23 @ 17:36 by Terri Pastor MD) Hypovitaminosis D Overweight DM2 (diabetes mellitus, type 2) Diabetes mellitus Dyslipidemia Weight loss Heartburn symptom Urinary tract infection Sleep apnea Elevated cholesterol Surgical History Hx of colonoscopy Family History Father Diabetes mellitus Mother Diabetes mellitus Social History Household Members: Spouse and Children Housing: Apartment Alcohol intake: former Patient Tobacco Use Status: Never used Tobacco e-Cigarette/Vaping Use: Never Used Second Hand Smoke Exposure: No service: No Current occupational status: employed Current occupational exposures/hazards: No Cognitive needs: No Hearing needs: No Vision needs: Yes Questionnaire Thrive Questionnaire Date Thrive assessed: 09/12/23 BETHANY-7 AMB Questionnaire BETHANY-7 Date BETHANY - 7 assessed: 09/12/23 Source: Developed by Drs. Himanshu Castellano, Talia Alexis, Jorge Noel and colleagues, with an educational bj from [employer]. Review of Systems Const All systems reviewed & are unremarkable except as noted in HPI and below Card Denies chest pain at rest, Denies chest pain with activity, Denies edema, Denies irregular heart rhythm, Denies claudication, Denies dyspnea, Denies dyspnea on exertion, Denies orthopnea, Denies paroxysmal nocturnal dyspnea and Denies slow heart rate Resp Denies cough, Denies dyspnea and Denies dyspnea on exertion Physical exam (Primary Care) Vital Signs: Last Vital Signs BP 110/72 12/31/23 17:05 BMI result Body Mass Index 22.2 Tobacco/Smoking Status: Tobacco use Status Tobacco use date assessed 09/12/23 12/31/23 17:10 Patient Tobacco Use Status Never used Tobacco 12/31/23 17:10 Tobacco use type 01/04/21 17:37 e-Cigarette/Vaping Use Never Used 12/31/23 17:10 Thrive Assessment: Date of Thrive Assessment Date Thrive assessed 09/12/23 12/31/23 17:10 Resp Effort & Inspection: normal respiratory effort Auscultation: clear to auscultation bilaterally Cardio Jugular venous distension: no JVD Rate: regular rate Rhythm: regular rhythm Heart sounds: S1 normal heart sound present and S2 normal heart sound present Extrem General: Yes full ROM Results AMB Hemoglobin A1c AMB Hemoglobin A1c 11.3 % Last Edit by DOMINGUEZ Laird on 12/31/23 17: 28 Assessment and Plan Assessment & Plan (1) DM2 (diabetes mellitus, type 2): Code(s): E11.9 - Type 2 diabetes mellitus without complications Qualifiers: Diabetes mellitus longterm insulin use: without longterm use Diabetes mellitus complication status: without complication Qualified Code(s): E11.9 - Type 2 diabetes mellitus without complications Plan: Be compliant with Actos. A1c goal is equal or less than 7%. (2) Hyperlipidemia LDL goal <70: Code(s): E78.5 - Hyperlipidemia, unspecified Plan: Start statins. LDL goal is less than 70. (3) Neck muscle spasm: Code(s): M62.838 - Other muscle spasm Plan: Start methocarbamol as needed. Orders: Orders AMB Hemoglobin A1c Today E11.9 - Type 2 diabetes mellitus without complications Medications: New rosuvastatin 10 mg PO BEDTIME 90 days 90 tabs 1RF E78.5 - Hyperlipidemia, unspecified methocarbamol 500 mg PO TID 5 days PRN 15 tabs 0RF muscle spasm Refilled pioglitazone 15 mg PO DAILY 90 days 90 tabs 1RF E11.9 - Type 2 diabetes mellitus without complications Coding Level of Care Code Est Pt Level 3 (89230) Complex EM visit Add On G2211 Diagnoses Type 2 diabetes mellitus without complication, without long-term current use of insulin E11.9 Diabetes mellitus longterm insulin use: without buttermaker use Diabetes mellitus complication status: without complication Hyperlipidemia LDL goal <70 E78.5 Neck muscle spasm M62.838 Time Spent (min) 19
== END 2024-01-01 08:56 | disposition home or self-care (01) ==
PROVIDERS: PCP Internal Medicine; Visit Provider Internal Medicine
DX: E11.9 Type 2 diabetes mellitus without complications (principal); E78.5 Hyperlipidemia, unspecified; M62.838 Other muscle spasm
CPT/HCPCS: 83036; 99213; G2211

== ENCOUNTER 2024-02-28 14:58 | Outpatient (AMB) | payer OTHER, SELFPAY ==
--- NOTE | 2024-02-28 15:04 | MHC.OFFVIS ---
Vital Signs 02/28/24 15:08 Height 5 ft 8 in Weight 149 lb 14.629 oz BMI 22.8 BP 114/66 Blood Pressure Location Rt brachial Position Sitting Pulse 74 Pulse Source Pulse Oximeter Intake Visit Reasons: DM Intake Note: New patient referred by PCP for T2DM. Patient reports he is losing weight and has phobia with needles. Last Diabetic Eye exam: Within 1 year Last Podiatry Visit: Does not see a Fuse Cup Expander Random Glucose: 368 mg/dl HgA1C: 11.3% 12/31/23 Conveyor Loader Required: No Accompanied by: Self / Same As Patient Allergies metformin Adverse Reaction (Intermediate, Verified 02/28/24 15:09) Diarrhea HPI Comments Details: This is a 53-year-old male with a past medical history of uncontrolled type 2 diabetes and hyperlipidemia presenting for diabetic management. He was last seen by endocrinology in 2020. He endorses weight loss of 45 pounds since diagnosis in 2020. Patient does not check his blood sugars. He is needle phobic. Hemoglobin a1c 11.3% 12/31/2023. Current medication regimen: Actos 15 mg. Previously on metformin which was discontinued due to diarrhea. Nonsmoker. Stopped drinking ETOH several years ago due to diabetes. Only drinks 1-2 drinks on birthday or special occasion. Diet: Breakfast-coffee w/ sugar free cream or black, 4 oz juice, wheat toast and egg and ham and cheese Lunch-rice and beans, pork chops and chicken, vegetables Dinner- same as lunch or cereal Snacks/desserts: cereal, yogurt and fruits Hypoglycemia symptoms: none Hyperglycemia symptoms: polydipsia, irritability Eye exam: [facility] Microvascular complications: neuropathy Macrovascular complications: no known Hyperlipidemia: treated with rosuvastatin 10 mg. His mother and father have Type II DM. His brother and sister also have prediabetes. ROS: Constitutional: No unexplained weight loss, fever, chills, fatigue or night sweats. Eyes: No vision change Respiratory: No shortness of breath Cardiovascular: No chest pain Gastrointestinal: No anorexia, nausea, vomiting or diarrhea. No abdominal pain Neurologic: No headache, dizziness, syncope. Endocrine: No cold or heat intolerance. No polyuria Physical exam: Constitutional: Alert, in no distress. Eyes: Pupils are equal, round and reactive to light. Extraocular muscles intact. Neck: Supple, Full range of motion. No lymphadenopathy. No palpable thyroid masses. Respiratory: Clear to auscultation. Cardiovascular: S1 S2 regular. No murmurs Neurologic: No focal neurological deficits. Right foot: Warm and well perfused. No clubbing, cyanosis or edema. DP pulse 3+. Decreased vibratory sensation. Intact sensation to monofilament. No open wounds. Left foot: Warm and well perfused. No clubbing, cyanosis or edema. DP pulse 3+. Decreased vibratory sensation. Intact sensation to monofilament. No open wounds. [facility] Medical History (Updated 02/28/24 @ 17:16 by DOUGLSA Guillermo) Diabetes mellitus with hyperglycemia Hypovitaminosis D Overweight DM2 (diabetes mellitus, type 2) Diabetes mellitus Dyslipidemia Weight loss Heartburn symptom Urinary tract infection Sleep apnea Elevated cholesterol Surgical History Hx of colonoscopy Family History Father Diabetes mellitus Mother Diabetes mellitus Social History Household Members: Spouse and Children Housing: Apartment Alcohol intake: former Patient Tobacco Use Status: Never used Tobacco e-Cigarette/Vaping Use: Never Used Second Hand Smoke Exposure: No service: No Current occupational status: employed Current occupational exposures/hazards: No Cognitive needs: No Hearing needs: No Vision needs: Yes Physical Exam Vital Signs: Last Vital Signs Pulse 74 02/28/24 15:08 BP 114/66 02/28/24 15:08 BMI result Body Mass Index 22.8 Results Reviewed Results Reviewed: Laboratory Last Values Glucose (Clinic) 368 mg/dL (60-115) H* 02/28/24 15:19 Laboratory Tests 12/28/23 08:35 Creatinine 0.87 Estimated GFR > 60 AST 20 ALT 31 Alkaline Phosphatase 141 H Triglycerides 131 Cholesterol 207 H LDL Cholesterol, Calc 133 H HDL Cholesterol 48 Urine Creatinine 68.96 Urine Microalbumin 14.0 Microalb/Creat Ratio 20.3 Assessment & Plan Assessment & Plan (1) Diabetes mellitus with hyperglycemia: Code(s): E11.65 - Type 2 diabetes mellitus with hyperglycemia Category: Medical Qualifiers: Diabetes mellitus type: other specified (including MACK) Diabetes mellitus adjunct faculty for medical terminology insulin use: with adjunct faculty for medical terminology use Qualified Code(s): E13.65 - Other specified diabetes mellitus with hyperglycemia; Z79.4 - [facility] (current) use of insulin Plan In summary this is a 53 year old male who presents with poorly controlled DM. Given BMI 22.8 and reported weight loss with significant increase in A1C relatively recently will proceed with blood tests to evaluate for possible Type I DM vs Type II. Patient is needle phobic and requires treatment with insulin adjunct faculty for medical terminology now. CGM is medically necessary. Sent to pharmacy. He is willing to self administer Lantus, start 10 units nightly. Would consider Cequr once he is monitoring glucose with CGM if agreeable to it versus oral diabetic medications based on lab results. Referred to dealer development manager. If you experience low blood sugar, treat this by eating a chewable fruit candy like skittles or jelly beans (about 8 pieces), 4 ounces (1/2 cup) of fruit juice (not diet), 1 tablespoon of honey or 4 glucose tablets (ordered for pt) If your blood sugar is under 50, take double the amount of one of the above. Recheck your blood sugar in 15 minutes. Patient states he is moving to [place] in March. He will contact me when he determines the date. Follow up in 2 weeks. Orders: Orders Glutamic acid decarboxylase Ab Today E11.65 - Type 2 diabetes mellitus with hyperglycemia Lipid Panel Today E11.65 - Type 2 diabetes mellitus with hyperglycemia Alanine Aminotransferase Today E11.65 - Type 2 diabetes mellitus with hyperglycemia Islet Cell Antibody Scrn/Titer Today E11.65 - Type 2 diabetes mellitus with hyperglycemia C Peptide Today E11.65 - Type 2 diabetes mellitus with hyperglycemia LDL Cholesterol Direct Today E11.65 - Type 2 diabetes mellitus with hyperglycemia Aspartate Amino Transferase Today E11.65 - Type 2 diabetes mellitus with hyperglycemia Medications: New insulin glargine (Lantus Solostar U-100 Insulin) 10 units (0.1 mL) subcut QPM 15 mL 5RF blood-glucose meter,continuous (FreeStyle Isabel 3 Dix) as directed 1 ea 0RF pen needle, diabetic (BD Ultra-Fine Mini Pen Needle) As directed 100 ea 5RF blood-glucose sensor (FreeStyle Isabel 3 Sensor device) apply new sensor every 14 days as directed 2 ea 11RF glucose (Dex4 Glucose Quick Dissolve) until symptoms of low blood sugar are controlled 16 grams (4 x 4 gram) PO Q15M PRN 30 tabs 3RF hypoglycemia Patient Instructions: Blood tests to be done today at lab. Start Lantus 10 units at bedtime. I prescribed a freestyle isabel 3 continuous glucose monitor. Please contact the office if you have low blood sugars <70. I referred you to see the dealer development manager. Coding Level of Care Code New Pt Level 5 (07612) Complex EM visit Add On G2211 Diagnoses Other specified diabetes mellitus with hyperglycemia, with long-term current use of insulin E13.65; Z79.4 Diabetes mellitus type: other specified (including MACK) Diabetes mellitus adjunct faculty for medical terminology insulin use: with adjunct faculty for medical terminology use Time Spent (min) 62 Comment direct patient care, reviewing chart, completing documentation
[2024-02-28 15:08] VITALS: BP 114/66; PULSE 74; BMI 22.8
[2024-02-28 15:35] LABS: Glucose, Whole Blood 368 mg/dL (60-115)
== END 2024-02-28 16:12 | disposition home or self-care (01) ==
PROVIDERS: PCP Internal Medicine; Visit Provider Physician Assistant Medical
DX: E13.65 Other specified diabetes mellitus with hyperglycemia (principal); Z79.4 Long term (current) use of insulin
CPT/HCPCS: 99205

== ENCOUNTER 2024-02-28 14:58 | Outpatient (REF) | payer OTHER, SELFPAY ==
[2024-02-28 17:31] LABS: Alanine Aminotransferase 36 U/L (0-40); Aspartate Amino Transferase 33 U/L (5-37); Cholesterol 158 mg/dL (<200); HDL Cholesterol 49 mg/dL (>40); LDL Cholesterol Calculated 63 mg/dL (<100); Triglycerides 232 mg/dL (<150)
[2024-03-01 09:58] LABS: C Peptide 2.71 ng/mL (0.80-3.85)
[2024-03-01 10:24] LABS: LDL Cholesterol Direct 91 mg/dL (<100)
[2024-03-14 00:19] LABS: Glutamic acid decarboxylase Ab <5 IU/mL (<5); Islet Cell Antibody Screen NEGATIVE (NEGATIVE)
== END 2024-02-28 14:59 | disposition home or self-care (01) ==
LOC: HO.LAB 14:58
PROVIDERS: PCP Internal Medicine; Visit Provider Physician Assistant Medical
DX: E11.65 Type 2 diabetes mellitus with hyperglycemia (principal)
CPT/HCPCS: 36415; 80061; 82947; 83721; 84450; 84460; 84681; 86341

== ENCOUNTER 2024-03-05 07:00 | Outpatient (AMB) | payer OTHER, SELFPAY ==
--- NOTE | 2024-03-05 07:24 | A.OFFVIS_ITS ---
Intake Intake Visit Reasons: diabetes mellitus with hyperglycemia Planning Specialist Required: No Accompanied by: Self / Same As Patient Allergies metformin Adverse Reaction (Intermediate, Verified 02/28/24 15:09) Diarrhea HPI Comprehensive Diabetes Asmnt Most Recent Diabetes Results: Microalb/Creat Ratio 20.3 ug/mg cr (<30) 12/28/23 Cholesterol 158 mg/dL (<200) 02/28/24 HDL Cholesterol 49 mg/dL (>40) 02/28/24 Triglycerides 232 mg/dL (<150) H 02/28/24 Creatinine 0.87 mg/dL (0.5-1.4) 12/28/23 Blood Urea Nitrogen 14 mg/dL (9-16) 12/28/23 Sodium 139 mmol/L (135-145) 12/28/23 Potassium 4.3 mmol/L (3.3-5.1) 12/28/23 Chloride 101 mmol/L (96-108) 12/28/23 Carbon Dioxide 29 mmol/L (22-29) 12/28/23 Calcium 10.0 mg/dL (8.4-10.2) 12/28/23 AST 33 U/L (5-37) 02/28/24 ALT 36 U/L (0-40) 02/28/24 Total Protein 8.4 g/dL (6.5-8.0) H 12/28/23 Albumin 4.6 g/dL (3.5-5.0) 12/28/23 [facility] Medical History (Updated 02/28/24 @ 17:16 by DOUGLAS Guillermo) Diabetes mellitus with hyperglycemia Hypovitaminosis D Overweight DM2 (diabetes mellitus, type 2) Diabetes mellitus Dyslipidemia Weight loss Heartburn symptom Urinary tract infection Sleep apnea Elevated cholesterol Surgical History Hx of colonoscopy Family History Father Diabetes mellitus Mother Diabetes mellitus Social History Household Members: Spouse and Children Housing: Apartment Alcohol intake: former Patient Tobacco Use Status: Never used Tobacco e-Cigarette/Vaping Use: Never Used Second Hand Smoke Exposure: No service: No Current occupational status: employed Current occupational exposures/hazards: No Cognitive needs: No Hearing needs: No Vision needs: Yes Assessment & Plan Assessment & Plan (1) Diabetes mellitus with hyperglycemia: Code(s): E11.65 - Type 2 diabetes mellitus with hyperglycemia Qualifiers: Diabetes mellitus type: other specified (including MACK) Diabetes mellitus [facility] insulin use: with medical terminologist use Qualified Code(s): E13.65 - Other specified diabetes mellitus with hyperglycemia; Z79.4 - [facility] (current) use of insulin Plan: CGM Info Instructed Pt on what CGM can and can't do CGM Can: Give Pt minute by minute reading of glucose levels Displays glucose trend arrows that represents the direction glucose levels are f luctuating Give insight on decisions about how to dose insulin CGM cannot: Improve glucose control on its own Completely eliminate the need for all finger sticks Make dosing decision for you CGM is the reading of glucose in the interstitial fluid not actual blood glucose, finger sticks are still necessary when Pt's symptom?s do not match sensor reading and if sensors prompts Pt to do a fingerstick Patient has Isabel 3 Reviewed delay of CGM from fingersticks Reminded pt that if symptoms do not match sensor still needs to check fingersticks. Patient at visit to set up an insert Instructed patient sensors water proof you can shower, or swim do not submerge sensor in water for over 30 minutes Is sensor falls off cannot put back in you need to replace sensor, customer service number given to patient for sensor replacement Sensor placed on the back of Left arm Patient left visit with sensor in warmup Reviewed how to interpret trend arrows Reminded patient that to check finger sticks if symptoms do not match sensor reading. Discussed lag time between finger stick and sensor data.? Instructed patient she should always keep blood glucometer for backup testing if needed Reviewed delay of CGM from fingersticks Reminded pt that if symptoms do not match sensor still needs to check fingersticks. Portions of this note were created using voice recognition software, please excuse any words or phrases that may have been misinterpreted. Patient Instructions: Patient instruction: CGM provides information on blood glucose control throughout the day, including hyperglycemia and hypoglycemia. ? Continue to monitor blood glucose as instructed. Follow nutrition guidelines provided. Report any discomfort promptly to health care provider. ?Stay well-hydrated. You can bathe ,shower, swim and exercise while wearing the glucose sensor. Do not submerge glucose sensor in water for more than 30 minutes. Instrucciones para el paciente: CGM proporciona informaci?n sobre el control de la glucosa en nikky a lo cl del d?a, incluidas la hiperglucemia y la hipoglucemia. Contin?e controlando la glucosa en nikky seg?n las instrucciones. Siga las pautas de nutrici?n proporcionadas. Informe cualquier molestia de inmediato al proveedor de atenci?n m?dica. Mantente sudha hidratado. Puede ba?arse, ducharse, nadar y hacer ejercicio mientras usa el sensor de glucosa. No sumerja el sensor de glucosa en agua preet m?s de 30 minutos. Retire el sensor para ketty resonancia magn?jluis o ketty tomograf?a computarizada. Evite la m?quina de hamilton X en los aeropuertos: retire el sensor o solicite la varita Coding Level of Care Code Est Pt Level 1 (16870) Diagnoses Other specified diabetes mellitus with hyperglycemia, with long-term current use of insulin E13.65; Z79.4 Diabetes mellitus type: other specified (including MACK) Diabetes mellitus medical terminologist insulin use: with [facility] use
== END 2024-03-05 07:59 | disposition home or self-care (01) ==
PROVIDERS: PCP Internal Medicine; Visit Provider Registered Nurse Diabetes Educator
DX: E13.65 Other specified diabetes mellitus with hyperglycemia (principal); Z79.4 Long term (current) use of insulin

== ENCOUNTER → 2024-03-05 07:00 | Outpatient (BNVA) | payer OTHER, SELFPAY | PROVIDERS: PCP Internal Medicine; Visit Provider Registered Nurse Diabetes Educator | DX: E13.65 Other specified diabetes mellitus with hyperglycemia (principal); Z79.4 Long term (current) use of insulin | CPT/HCPCS: 99211 ==

== ENCOUNTER 2024-03-13 08:19 | Outpatient (AMB) | payer OTHER, SELFPAY ==
--- NOTE | 2024-03-13 08:24 | MHC.OFFVIS ---
Vital Signs 03/13/24 08:28 Height 5 ft 8 in Weight 150 lb 2.157 oz BMI 22.8 BP 104/64 Blood Pressure Location Rt brachial Position Sitting Pulse 66 Pulse Source Pulse Oximeter Intake Visit Reasons: DM/CONFIRMED Intake Note: Patient present today for Diabetes Mellitus. Last Diabetic Eye exam: Within 1 year Last Podiatry Visit: Does not see a Representative Personal Service Random Glucose: 245 mg/dl HgA1C: 11.3% 12/31/2023 Clamp Jig Assembler Required: No Accompanied by: Self / Same As Patient Allergies metformin Adverse Reaction (Intermediate, Verified 03/13/24 08:28) Diarrhea HPI Comments Details: This is a 53-year-old male with a past medical history of uncontrolled type 2 diabetes and hyperlipidemia presenting for diabetic management. I last saw him on 02/28/24. He endorsed weight loss of 45 pounds since diagnosis in 2020. He was not checking BG. He is needle phobic. Hemoglobin a1c 11.3% 12/31/2023. He started Lantus 10 units. I ordered testing for Type I vs Type II evaluation. Cpeptide is normal. Other tests are pending. Average glucose is 319 03/07-03/13. No hypoglycemia per CGM. Current medication regimen: Actos 15 mg and Lantus 10 mg. Previously on metformin which was discontinued due to diarrhea. Nonsmoker. Stopped drinking ETOH several years ago due to diabetes. Only drinks 1-2 drinks on birthday or special occasion. Diet: Breakfast-coffee w/ sugar free cream or black, 4 oz juice, wheat toast and egg and ham and cheese Lunch-rice and beans, pork chops and chicken, vegetables Dinner- same as lunch or cereal Snacks/desserts: cereal, yogurt and fruits Hypoglycemia symptoms: none Hyperglycemia symptoms: polydipsia, irritability Eye exam: [facility] Microvascular complications: neuropathy Macrovascular complications: no known Hyperlipidemia: treated with rosuvastatin 10 mg. Triglycerides were mildly elevated on his recent blood tests, but he was not fasting for the blood work. His LDL cholesterol is at goal. His mother and father have Type II DM. His brother and sister also have prediabetes. ROS: Constitutional: No unexplained weight loss, fever, chills, fatigue or night sweats. Eyes: No vision change Respiratory: No shortness of breath Cardiovascular: No chest pain Gastrointestinal: No anorexia, nausea, vomiting or diarrhea. No abdominal pain Neurologic: No headache, dizziness, syncope. Endocrine: No cold or heat intolerance. No polyuria Physical exam: Constitutional: Alert, in no distress. Eyes: Pupils are equal, round and reactive to light. Extraocular muscles intact. Respiratory: Clear to auscultation. Cardiovascular: S1 S2 regular. No murmurs Neurologic: No focal neurological deficits. [facility] Medical History (Updated 02/28/24 @ 17:16 by DOUGLAS Guillermo) Diabetes mellitus with hyperglycemia Hypovitaminosis D Overweight DM2 (diabetes mellitus, type 2) Diabetes mellitus Dyslipidemia Weight loss Heartburn symptom Urinary tract infection Sleep apnea Elevated cholesterol Surgical History Hx of colonoscopy Family History Father Diabetes mellitus Mother Diabetes mellitus Social History Household Members: Spouse and Children Housing: Apartment Alcohol intake: former Patient Tobacco Use Status: Never used Tobacco e-Cigarette/Vaping Use: Never Used Second Hand Smoke Exposure: No service: No Current occupational status: employed Current occupational exposures/hazards: No Cognitive needs: No Hearing needs: No Vision needs: Yes Physical Exam Vital Signs: Last Vital Signs Pulse 66 03/13/24 08:28 BP 104/64 03/13/24 08:28 BMI result Body Mass Index 22.8 Results Reviewed Results Reviewed: Laboratory Last Values Glucose (Clinic) 245 mg/dL (60-115) H 03/13/24 08:33 Assessment & Plan Assessment & Plan (1) Diabetes mellitus with hyperglycemia: Code(s): E11.65 - Type 2 diabetes mellitus with hyperglycemia Category: Medical Qualifiers: Diabetes mellitus type: other specified (including MACK) Diabetes mellitus group home insulin use: with longitudinal float operator use Qualified Code(s): E13.65 - Other specified diabetes mellitus with hyperglycemia; Z79.4 - form setter steel pan forms (current) use of insulin Plan In summary this is a 53 year old male who presents with poorly controlled DM. Given BMI 22.8 and reported weight loss with significant increase in A1C relatively recently we proceeded with blood tests to evaluate for possible Type I DM vs Type II. C-peptide is within normal limits, but his other blood tests are still pending. He will be called with results when they are available. Plan to start GLP 1 if he is type 2. The patient is needle phobic and not willing to start short-acting insulin with meals at this time. The patient will increase Lantus to 15 units nightly. After few days if BG is still over 200 he will increase to 20 units nightly. He met with the assistant health educator. If you experience low blood sugar, treat this by eating a chewable fruit candy like skittles or jelly beans (about 8 pieces), 4 ounces (1/2 cup) of fruit juice (not diet), 1 tablespoon of honey or 4 glucose tablets (ordered for pt) If your blood sugar is under 50, take double the amount of one of the above. Recheck your blood sugar in 15 minutes. Patient states he is moving to [place] in March or April. Schedule tentative follow up in 1 month. Medications: New pen needle, diabetic (BD Ultra-Fine Mini Pen Needle) As directed 100 ea 5RF Refilled glucose (Dex4 Glucose Quick Dissolve) until symptoms of low blood sugar are controlled 16 grams (4 x 4 gram) PO Q15M PRN 30 tabs 3RF hypoglycemia Coding Level of Care Code Est Pt Level 4 (23569) Complex EM visit Add On G2211 Diagnoses Other specified diabetes mellitus with hyperglycemia, with long-term current use of insulin E13.65; Z79.4 Diabetes mellitus type: other specified (including MACK) Diabetes mellitus group home insulin use: with longitudinal float operator use
[2024-03-13 08:28] VITALS: BP 104/64; PULSE 66; BMI 22.8
[2024-03-13 08:37] LABS: Glucose, Whole Blood 245 mg/dL (60-115)
== END 2024-03-13 08:59 | disposition home or self-care (01) ==
PROVIDERS: PCP Internal Medicine; Visit Provider Physician Assistant Medical
DX: E13.65 Other specified diabetes mellitus with hyperglycemia (principal); Z79.4 Long term (current) use of insulin
CPT/HCPCS: 99214

== ENCOUNTER → 2024-03-13 08:19 | Outpatient (BNVA) | payer OTHER, SELFPAY | PROVIDERS: PCP Internal Medicine; Visit Provider Physician Assistant Medical | DX: E13.65 Other specified diabetes mellitus with hyperglycemia (principal); Z79.4 Long term (current) use of insulin | CPT/HCPCS: 82947 ==

== ENCOUNTER 2024-03-24 07:11 | Outpatient (AMB) | payer OTHER, SELFPAY ==
--- NOTE | 2024-03-24 07:42 | MHC.AMDMED ---
Intake Intake Visit Reasons: 60 min-conf Allergies metformin Adverse Reaction (Intermediate, Verified 03/13/24 08:28) Diarrhea HPI Comprehensive Diabetes Asmnt Most Recent Diabetes Results: Microalb/Creat Ratio 20.3 ug/mg cr (<30) 12/28/23 Cholesterol 158 mg/dL (<200) 02/28/24 HDL Cholesterol 49 mg/dL (>40) 02/28/24 Triglycerides 232 mg/dL (<150) H 02/28/24 Creatinine 0.87 mg/dL (0.5-1.4) 12/28/23 Blood Urea Nitrogen 14 mg/dL (9-16) 12/28/23 Sodium 139 mmol/L (135-145) 12/28/23 Potassium 4.3 mmol/L (3.3-5.1) 12/28/23 Chloride 101 mmol/L (96-108) 12/28/23 Carbon Dioxide 29 mmol/L (22-29) 12/28/23 Calcium 10.0 mg/dL (8.4-10.2) 12/28/23 AST 33 U/L (5-37) 02/28/24 ALT 36 U/L (0-40) 02/28/24 Total Protein 8.4 g/dL (6.5-8.0) H 12/28/23 Albumin 4.6 g/dL (3.5-5.0) 12/28/23 [facility] Medical History (Updated 02/28/24 @ 17:16 by DOUGLAS Guillermo) Diabetes mellitus with hyperglycemia Hypovitaminosis D Overweight DM2 (diabetes mellitus, type 2) Diabetes mellitus Dyslipidemia Weight loss Heartburn symptom Urinary tract infection Sleep apnea Elevated cholesterol Surgical History Hx of colonoscopy Family History Father Diabetes mellitus Mother Diabetes mellitus Social History Household Members: Spouse and Children Housing: Apartment Alcohol intake: former Patient Tobacco Use Status: Never used Tobacco e-Cigarette/Vaping Use: Never Used Second Hand Smoke Exposure: No service: No Current occupational status: employed Current occupational exposures/hazards: No Cognitive needs: No Hearing needs: No Vision needs: Yes Assessment & Plan Assessment & Plan (1) DM2 (diabetes mellitus, type 2): Code(s): E11.9 - Type 2 diabetes mellitus without complications Qualifiers: Diabetes mellitus termite exterminator helper insulin use: without termite exterminator helper use Diabetes mellitus complication status: without complication Qualified Code(s): E11.9 - Type 2 diabetes mellitus without complications Plan: Learning objectives: The patient was provided with verbal and written education on the following topics as outlined below. The patient met all learning objectives and was able to verbalize understanding and provide teach back of education topics discussed . The patient was provided with the opportunity to ask questions and all questions were answered. Patient Assessment Assess patient education level/literacy/barriers, patient could identify foods off carb list that he is currently eating Patient questions/concerns patient's A1c in 01/02/2024 11.3% Patient is currently taking Lantus 15 units daily Pioglitazone 15 mg daily Patient reports that he and his family are planning on moving to [place] at the end of March the beginning of April, patient does report that he has PCP who will be managing his diabetes What is Diabetes? Pathophysiology How the body produces and uses insulin Identify type of DM Risk factors Signs of Diabetes Brief overview of Diabetes Management Monitoring blood sugar Following a meal plan Regular exercise Maintaining a healthy weight Taking medication as needed Members of the care team (PCP, RN, MA, RD, CDE, manager data) Blood glucose monitoring When/how often to test Target blood sugar ranges Patient using [employer] 3, we were unable to connect patient to [email or web address] view at today's visit patient's cellphone would not connect to [email or web address] wrapper and preserver. E-mail sent to patient to connect to [facility] [email or web address] review account, patient did not receive e-mail while at visit. Patient's average glucose for the past 14 days 292 mg/dL Patient above target 95% Patient at target 5% Patient below target 0% Patient also reports that he received Dexcom G7 manager sign and sensors, instructed patient if he needs assistance in setting up Dexcom G7 to set up appointment with Diabetes Education Introduction to Nutrition Importance of healthy diet in managing DM Diet is personalized to individual preference Review patient?s regular diet/food preferences Who prepares meals/does food shopping/ Dining out?/ Barriers? How diet effects glucose Eating 3 balanced meals a day with small, healthy snacks between meals Review food groups Carbohydrates: What is a carbohydrate/Which food/food groups are considered carbohydrates Effect of carbohydrates on blood glucose Portion sizes Reading food labels Basic carb counting (if applicable per nursing assessment) Plate method Meal planning Recommendations: Follow plate method, consistent carbs and read nutritional labels. Smart Goal: Educational Materials: The patient was provided with the following written educational materials: Planning Healthy Meals Handout Patient Response to instructions: Comprehension of Instructions: Fair Readiness to make changes: Contemplation How confident they feel about making changes: Positive Portions of this note were created using voice recognition software, please excuse any words or phrases that may have been misinterpreted. Patient Instructions: Include regular daily activity. ADA recommends 30 minutes of exercise 5 days a week. Weight loss talk to PCP or Business Intelligence Engineer before starting new plan. Test blood sugar as directed; Fasting and 2hpp largest meal. Watch trends in results. Utilize results and to assess how food, physical activity and medications affect blood sugar results. Bring glucometer or CGM to next visit. Be knowledgeable about diabetes medication, its action, side effects, efficacy, toxicity, prescribed dosage, appropriate timing and frequency of administration, effect of missed and delayed doses and instructions for storage, travel and safety. Problem solving techniques to monitor hypo/hyperglycemia episodes and treatments. Reduce risk reduction behaviors, smoking cessation, regular eye, foot and dental examinations. Incluir actividad diaria regular. ADA recomienda 30 minutos de ejercicio 5 d?as a la semana. P?rdida de peso, hable con el PCP o el cardi?logo antes de comenzar un nuevo plan. Mida el nivel de az?car en la nikky seg?n las indicaciones; Ayuno y comida m?s sarah de 2hpp. Observe las tendencias en los resultados. Utilice los resultados y eval?e c?mo los alimentos, la actividad f?mavis y los medicamentos afectan los resultados de az?car en la nikky. Lleve el gluc?metro o CGM a la pr?xima visita. Conocer los medicamentos para la diabetes, jackson acci?n, los efectos secundarios, la eficacia, la toxicidad, la dosis prescrita, el momento y la frecuencia de administraci?n apropiados, el efecto de las dosis olvidadas y retrasadas y las instrucciones de almacenamiento, viaje y seguridad. T?cnicas de resoluci?n de problemas para el seguimiento de episodios de hipo/hiperglucemia y tratamientos. Reducir los comportamientos de reducci?n de riesgos, dejar de fumar, ex?menes regulares de ojos, pies y dentales. Coding Level of Care Code Est Pt Level 1 (78108) Diagnoses Type 2 diabetes mellitus without complication, without long-term current use of insulin E11.9 Diabetes mellitus termite exterminator helper insulin use: without termite exterminator helper use Diabetes mellitus complication status: without complication
== END 2024-03-24 07:53 | disposition home or self-care (01) ==
PROVIDERS: PCP Internal Medicine; Visit Provider Registered Nurse Diabetes Educator
DX: E11.9 Type 2 diabetes mellitus without complications (principal)

== ENCOUNTER → 2024-03-24 07:11 | Outpatient (BNVA) | payer OTHER, SELFPAY | PROVIDERS: PCP Internal Medicine; Visit Provider Registered Nurse Diabetes Educator | DX: E11.9 Type 2 diabetes mellitus without complications (principal) | CPT/HCPCS: 99211 ==